=== PATIENT | male | born 1970 | race Caucasian/White ===

== ENCOUNTER 2021-10-25 19:45 | Outpatient (REF) | payer BC, SELFPAY ==
[2021-10-25 21:09] LABS: Bilirubin Negative (Negative); Blood Negative (Negative); Clarity Clear (Clear); Glucose Negative (Negative); Ketones Negative (Negative); Leukocyte Esterase Negative (Negative); Nitrite Negative (Negative); Specific Gravity >= 1.030 (1.005-1.025); Urobilinogen 0.2 EU/dL (Up TO 0.2); pH 5.5 (5-8)
== END 2021-10-25 19:46 | disposition home or self-care (01) ==
LOC: LBN 19:45
PROVIDERS: PCP Naturopath; Visit Provider Nurse Practitioner Family
DX: R31.9 Hematuria, unspecified (principal); N39.0 Urinary tract infection, site not specified
CPT/HCPCS: 81003

== ENCOUNTER 2022-04-20 01:56 | Outpatient (CLI) | payer BC, SELFPAY ==
[2022-04-20 12:40] LABS: Hemoglobin A1C 5.9 % (<5.7)
[2022-04-20 12:50] LABS: ALT 33 U/L (16-63); AST 27 U/L (15-37); Albumin 3.9 g/dL (3.4-5.0); Alkaline Phosphatase 70 U/L (46-116); Anion Gap 8.3 mmol/L (3-11); BUN 20 mg/dL (7-18); Bilirubin, Total 0.4 mg/dL (0.2-1.0); CO2 27.7 mmol/L (21.0-32.0); CREATININE 1.1 mg/dL (0.70-1.30); Calcium 9.4 mg/dL (8.5-10.1); Calculated LDL 108 mg/dL (<100); Chloride 104 mmol/L (98-107); Cholesterol 175 mg/dL (<200); Estimated GFR 82.29 (mL/min/1.73m2); Glucose 88 mg/dL (74-106); HDL Cholesterol 53 mg/dL (40-60); Potassium 3.9 mmol/L (3.5-5.1); Sodium 140 mmol/L (136-145); TSH 0.18 uIU/mL (0.36-3.74); Total Protein 7.6 g/dL (6.4-8.2); Triglyceride 70 mg/dL (<150)
[2022-04-20 13:07] LABS: FREE T4 1.28 ng/dL (0.76-1.46)
== END 2022-04-20 01:57 | disposition home or self-care (01) ==
LOC: LOS 01:56
PROVIDERS: PCP Nurse Practitioner Family; Visit Provider Nurse Practitioner Family
DX: E03.9 Hypothyroidism, unspecified (principal); G47.33 Obstructive sleep apnea (adult) (pediatric)
CPT/HCPCS: 36415; 80053; 80061; 83036; 83655; 84439; 84443

== ENCOUNTER 2022-06-26 02:22 | Outpatient (CLI) | payer BC, SELFPAY ==
[2022-06-26 12:40] LABS: TSH (W/Ref FT4) 2.71 uIU/mL (0.36-3.74)
== END 2022-06-26 02:23 | disposition home or self-care (01) ==
LOC: LOS 02:22
PROVIDERS: PCP Nurse Practitioner Family; Visit Provider Nurse Practitioner Family
DX: E03.9 Hypothyroidism, unspecified (principal)
CPT/HCPCS: 36415; 84443

== ENCOUNTER 2022-08-15 01:41 | Outpatient (CLI) | payer BC, SELFPAY ==
--- NOTE | 2022-08-15 06:45 | DI.RAD_ITS ---
Exam(s) XR SHOULDER LT COMPLETE 2+V EXAM: XR SHOULDER LT COMPLETE 2+V CLINICAL HISTORY: left shoulder pain,m25.512. TECHNIQUE: 2D digital imaging was performed of the left shoulder. Five images were obtained. AP, G rashey, Y-view and axillary views were obtained. COMPARISON: No exams were available for comparison FINDINGS: BONES: No acute fracture is present. No bony destructive lesion is seen. JOINTS: No dislocation present. Mild degenerative changes are seen at the acromioclavicular joint. S ubchondral cysts are also seen in the distal clavicle. The glenohumeral joint is well maintained. SOFT TISSUE: Normal. IMPRESSION: Mild degenerative changes of the acromioclavicular joint. DATA REPOSITORY: RADIATION DOSE DELIVERED:
== END 2022-08-15 02:01 ==
LOC: DI 01:41
PROVIDERS: PCP Nurse Practitioner Family; Visit Provider Nurse Practitioner Family
DX: M19.012 Primary osteoarthritis, left shoulder (principal)
CPT/HCPCS: 73030

== ENCOUNTER → 2022-12-19 00:59 | Outpatient (CLI) | payer OTHER, SELFPAY ==
--- NOTE | 2022-12-19 15:30 | DI.MRI_ITS ---
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 TECHNIQUE: Multiplanar multisequence MRI was performed. COMPARISON: CR XR SHOULDER LT COMPLETE 2+V from 08/15/2022 FINDINGS: BONES: There is no fracture or contusion pattern. There is hyperintense signal on the T2 weighted [place] ges in the distal clavicle and the adjacent acromion. There is a subchondral cyst in the distal clav icle. There is a small amount of fluid within the acromioclavicular joint space. There is mild brittny a in the surrounding soft tissues. JOINTS: Please see the above discussion under bones. The glenohumeral joint is normal. TENDONS: Supraspinatus: There is mild hyperintense signal seen at the musculotendinous junction of the suprasp inatus tendon which may represent a partial tear. Infraspinatus: Unremarkable. Subscapularis: There is tendinosis of the subscapularis tendon. Teres [place]: Unremarkable. Biceps and [place]: Unremarkable. MUSCLES: Unremarkable. GLENOID LABRUM: Unremarkable on this noncontrast examination. SOFT TISSUES: Unremarkable. LIGAMENTS: Unremarkable. OTHER: Subacromial and subdeltoid bursae are unremarkable. IMPRESSION: 1. Hyperintense signal seen at the acromioclavicular joint and within the joint space. Please see th e above discussion for complete details. The findings may represent infection/osteomyelitis/septic a rthritis. Degenerative changes of the acromioclavicular joint should also be considered. 2. Small partial tear of the supraspinatus tendon. 3. Subscapularis tendinosis. DATA REPOSITORY:
== END ==
PROVIDERS: PCP Nurse Practitioner Family; Visit Provider Student in an Organized Health Care Education/Training Program
DX: M89.512 Osteolysis, left shoulder (principal); S46.011A Strain of muscle(s) and tendon(s) of the rotator cuff of right shoulder, initial encounter; X58.XXXA Exposure to other specified factors, initial encounter
CPT/HCPCS: 73221

== ENCOUNTER 2023-06-14 07:57 | Day surgery (SDC) | payer OTHER, SELFPAY ==
[2023-06-14] VITALS (13 sets, daily range): BP systolic 119–142; BP diastolic 67–85; PULSE 55–91; RESP 15–18; TEMP 36.4–36.7; O2SAT 96–99; BMI 35.9
--- NOTE | 2023-06-14 06:45 | ANES.PREOP_ITS ---
General Info Date of Service Date Performed: 06/14/23 Height: 6 ft 1 in Weight: 123.377 kg Body Mass Index (BMI): 35.9 Surgical Procedure: Operation Date: 06/14/23 10:25 Proposed Procedure Side Surgeon p Shoulder Possible Rotator Cuff Arthroscopic w/Extensive Debridement, Subacromial Decompression, Distal Clavicle Excision Left Braxton Taylor MD Meds Allergies and Home Medications Allergies Allergy/AdvReac Type Severity Reaction Status Date / Time No Known Allergies Allergy Verified 06/11/23 13:36 Home Medication Medication Instructions Recorded bupropion HCl 150 mg 24 hr tablet, 150 mg PO DAILY #90 tabs 09/15/22 extended release bupropion HCl 300 mg 24 hr tablet, 300 mg PO DAILY #90 tabs 09/15/22 extended release levothyroxine 75 mcg tablet 75 mcg PO DAILY #90 tabs 09/15/22 tadalafil 5 mg tablet 5 - 20 mg (1 - 4 x 5 mg) PO DAILY 12/22/22 PRN sexual activity #60 tabs Current Visit Medications: Current Medications Generic Name Dose Route Start Last Admin Trade Name Freq PRN Reason Stop Dose Admin Ringer's Solution 1,000 mls @ 30 mls/hr 06/14/23 06:00 IV 07/13/23 23:59 INFUSION FLORENCIO Cefazolin Sodium/Dextrose 2 gm in 50 mls @ 100 mls/hr 06/14/23 06:00 Ancef Duplex IVPB 06/14/23 16:00 PREOP FLORENCIO Tranexamic Acid/Sodium Chloride 1,000 mg in 100 mls @ 600 mls/hr 06/14/23 06:00 IVPB 06/14/23 16:00 PREOP FLORENCIO IV Miscellaneous Supplies 1 each 06/14/23 06:00 Iv Access IV 07/13/23 23:59 DIRECTED FLORENCIO Sodium Chloride 0 ml 06/14/23 06:00 Normal Saline Flush 10 Ml Syr IV 07/13/23 23:59 PRN PRN Sodium Chloride 0 ml 06/14/23 06:00 Normal Saline 10 Ml Vial IJ 07/13/23 23:59 DIRECTED PRN Sterile Water 0 ml 06/14/23 06:00 Water,Injection,Sterile 10 Ml Vial IJ 07/13/23 23:59 DIRECTED PRN PFSH Active Problems Active Problems: Problem Status Onset Code 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 Left shoulder pain M25.512 Cerebral palsy, unspecified G80.9 Obstructive sleep apnea G47.33 Hypothyroidism E03.9 Major depressive disorder, recurrent F33.9 Hyperlipidemia E78.5 Prediabetes R73.03 Erectile dysfunction N52.9 Psoriasis L40.9 Obesity E66.9 Surgical History Surgical History S/P colonoscopy S/P excision of lipoma Tobacco Smoking/Tobacco Use Status: Never Passive smoking exposure: No Alcohol Alcohol Intake: current Alcohol intake frequency: a few times a month Substance Use Substance use: Occasionally Substance use type: marijuana Vital Signs and Lab Results Vital Signs Most Recent Vital Signs in EMR: Temp Pulse Resp BP Pulse Ox 36.7 C 60 16 142/80 H 96 06/14/23 08:36 06/14/23 09:13 06/14/23 09:13 06/14/23 09:13 06/14/23 09:13 Lab Results Blood Type / Crossmatch: No Data to Display Complete Blood Count: No Data to Display Complete Metabolic Panel: No Data to Display Liver Function Panel: No Data to Display Coagulation Panel: No Data to Display Cardiac Panel: No Data to Display Arterial Blood Gas: 2 No Data to Display Venous Blood Gas: No Data to Display Pancreas Panel: No Data to Display Thyroid Panel: No Data to Display Infectious Disease: No Data to Display Blood Cultures: No Data to Display Toxicology Panel: No Data to Display Anesthesia Assessment and Plan Anesthesia History Personal History: No History of Anesthesia Complications Family History: No Family History of Anesthesia Complications Exercise Tolerance Exercise Tolerance: Metabolic Equivalents>4 Pertinent Negatives Pertinent Negatives: No Symptoms of GERD, No Major Cardiovascular Symptoms or Complaints and No Major Pulmonary Symptoms or Complaints Cardiac & Pulmonary Exam Cardiac Exam: Normal S1/S2 Heart Sounds Pulmonary Exam: Clear Bilateral Breath Sounds Implantable Cardiac Device Does patient have a Pacemaker or an ICD?: No Airway Exam Known Difficult Airway: No Mallampati Class: 1 Mouth Opening: Normal (> 3cm) Thyromental Distance: Greater than 3 cm Neck Range of Motion: Full ROM Neck Circumference: Normal Teeth Condition: Normal Dentition ASA Classification ASA Score: ASA 2 Emergency Case?: No NPO Status NPO Status: NPO Clears >2 hours, Solids >8 hours Anesthesia Plan Resuscitation Status: Full Code Anesthesia Technique: General Anesthesia Airway Planned: Endotracheal Tube Pain Management: Surgeon and patient request nerve block Monitors Used: Standard Monitors Preoperative Comments:: 52 yo male for shoulder scope, distal clavicle excision. sig PMHx: JED, hypothyroid (on replacement), preDM, cerebral palsy, depression (bupropion). never smoker, occ EtOH/cannabis.
--- NOTE | 2023-06-14 07:16 | W.PM.DSUDISC ---
Date of service: 06/14/23 Time of Service: 13:00 Discharge Plan Disposition Patient Disposition: Home Condition: Stable Discharge Details Attending Provider: Braxton Taylor Primary Care Provider: Terri Huggins Home Meds and New Rx's Prescriptions: New naproxen 250 mg tablet 250 - 500 mg PO BID PRNQty: 40 0RF Rx Instructions: take with a meal oxycodone 5 mg tablet 5 - 10 mg PO Q4H MDD 30 mg PRN (Reason: moderate to severe pain) Qty: 12 0RF Continued bupropion HCl 150 mg tablet extended release 24 hr 150 mg PO DAILY Qty: 90 3RF Rx Instructions: 1 tab daily in addition to the 300mg tablet bupropion HCl 300 mg tablet extended release 24 hr 300 mg PO DAILY Qty: 90 3RF Rx Instructions: Take 1 tablet daily in addition to the 150mg tablet levothyroxine 75 mcg tablet 75 mcg PO DAILY Qty: 90 3RF tadalafil 5 mg tablet 5 - 20 mg PO DAILY PRN (Reason: sexual activity) Qty: 60 2RF Discharge Instructions Additional Instructions: Surgery: Left shoulder arthroscopy with extensive debridement, distal clavicle excision, and subacromial decompression. Activity: You should gradually increase range of motion motion and use of your shoulder. You may use your shoulder for all regular activities while protecting acromioclavicular joint. Recommend avoiding heavy lifting, reaching overhead, or lifting away from body for approximately 6-8 weeks. You may use the sling whenever you are out of the house for a few weeks. At home it is best to remove the sling and rest the arm on a pillow at your side or support the operative side with your other hand. A physical therapy prescription will be sent electronically to start in about 3 weeks. Prescriptions: Naproxen 250 mg take 1-2 every 12 hours with a meal as needed for moderate pain Oxycodone 5 mg take 1-2 every 4-6 hours as needed for severe pain You may use [id number] Tylenol (acetaminophen) as needed for mild pain. These pain medications may be taken all at once or in different combinations as needed. Also, recommend Colace (docusate) as a stool softener as surgery and pain medicine cause constipation. You may try [id number] diphenhydramine (Benadryl) 25-50 mg nightly as a sleep aid Dressings: Remove shoulder bandage after 3 days. Leave the sticky Steri-Strips in place until they fall off or remove them after you shower. Cover the incisions with Band-Aids or leave them open to air. You may shower after 5 days. Follow-up: 10-[address] Taylor You may take off the leg compression stockings this evening at home. You may also leave them on a few days longer if you have a history of leg swelling or edema. Let us know right away if you develop any redness, drainage, fevers, chest pain, or trouble breathing. Do not drink alcohol or drive for at least 24 hours after anesthesia. Please call the office during business hours with any questions or concerns. Stand Alone Forms: Anesthesia Discharge Inst.Josi.Nerve Block Instructions, Felicita Oakley ([facility]) Referrals: Braxton Taylor MD [ [facility] STAFF PHYSICIAN] - 06/27/23 9:00 am (Follow Up Post Left Shoulder Surgery with Dr. 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
[2023-06-14] MEDS: Lactated Ringers 1,000 ML 30 ML IV (09:00)
--- NOTE | 2023-06-14 10:10 | W.ANESNERVE ---
Nerve Block Single Injection Procedure Date and Time Date Performed: 06/14/23 Procedure Start: 10:10 Location Where Procedure Performed Procedure Location: Day Surgery Unit Reason Performed: Postoperative Analgesia Requesting Provider: Braxton Taylor Timeout Performed Timeout Performed: Yes Monitoring Used ECG, Blood Pressure and SpO2 Sterility Sterility: Hand Hygiene, Surgical Cap, Surgical Mask, Sterile Gloves and Chlorhexidine Sedation Given During Procedure Sedation Given (Indicate Dose Given): Versed IV Dose:: 2 mg Patient Mental Status Patient Mental Status: Sedate with meaningful communication Nerve Block 1st Nerve Block: Laterality: Left Block Type: Interscalene Ultrasound Image Saved?: Yes Needle / Catheter Used: 100mm SonoPlex II Local Anesthetic Bolus (Indicate Dose Given): Bupivacaine 0.5% Dose:: 10 mL and Exparel Dose:: 7 mL Additives (Indicate Dose Given): None Ultrasound: Sterile probe cover and gel used Nerve Stimulator: Supplement to Ultrasound use and No twitch or parasthesia noted < 0.5 mA Paresthesia: None Procedure Tolerated: No Complications Procedure Outcome: Successful Performed By: Adrian Chi 2nd Nerve Block: Laterality: Left Block Type: Superficial Cervical Plexus Ultrasound Image Saved?: Yes Needle / Catheter Used: 100mm SonoPlex II Local Anesthetic Bolus (Indicate Dose Given): Exparel Dose:: 3 mL Additives (Indicate Dose Given): None Ultrasound: Sterile probe cover and gel used Nerve Stimulator: Not Used, Supplement to Ultrasound use and No twitch or parasthesia noted < 0.5 mA Paresthesia: None Procedure Tolerated: No Complications Procedure Outcome: Successful Performed By: Adrian Chi
--- NOTE | 2023-06-14 10:24 | ROE_ITS ---
Date of service: 06/14/23 Time of Service: 11:00 Operative Note Operative Note DATE OF PROCEDURE: 06/14/23 PRE-OP DIAGNOSIS: Left: 1. Distal clavicle osteolysis 2. Mild biceps tendinopathy 3. Small partial supraspinatus rotator cuff tear POST-OP DIAGNOSIS: same PROCEDURE: Left: 1. Arthroscopic distal clavicle excision, CPT# 02191. This involved arthroscopically exposing the underside of the acromioclavicular joint, smoothing out bone spurs, and removing a few millimeters of the distal clavicle so there was no abnormal bone left engaging the acromion. 2. Extensive debridement, CPT# 26757. This involved using arthroscopic hand instruments, power instruments, and radiofrequency instruments to debride partial subscapularis tearing, anterior and posterior labral tearing, SLAP tearing, partial articular supraspinatus tearing, and some rotator interval synovitis working in the glenohumeral joint anteriorly, superiorly, and posteriorly. 3. Subacromial decompression with partial acromioplasty, CPT# 43413. This involved using arthroscopic power instruments and a radiofrequency wand to complete a bursectomy and smooth the undersurface of the acromion. The electrician assistant was medically required in order to help assist in techniques above, which require positioning the arm, holding the arthroscope, and manipulating multiple instruments and sutures at the same time. This cannot be done without the help of an experienced electrician assistant. SURGEON: Braxton Taylor TIN POT OPERATOR: Shabana Ray ANESTHESIA TYPE: Local By Surgeon, General LMA/ETT and Primary Nerve Block Refer to Anesthesia Record ESTIMATED BLOOD LOSS: 5 PATHOLOGY: none sent COMPLICATIONS: None Patient was transported to: PACU Patient's condition: stable Implants: None Indications: The patient was diagnosed with the above conditions and appropriately indicated for surgical intervention. Please see complete medical record for details. Findings: Exam under anesthesia: Full range of motion, no instability Glenohumeral joint: Mild anterior and posterior labral tear fraying, minimal SLAP tear fraying with otherwise intact biceps tendon and biceps tendon anchor, mild small upper lateral margin subscapularis partial tearing, minimal central to posterior humeral head chondromalacia, mild partial articular supraspinatus tendon tearing without any significant footprint involvement. Subacromial space: Moderate bursitis, inflamed cystic distal clavicle. Intact bursal rotator cuff. Procedure Description: In the operating room, general anesthesia was induced. Bilateral shoulders were examined. The patient was positioned in the beachchair position. All bony prominences were well-padded. Preoperative antibiotics were administered. The shoulder was prepped and draped in the usual sterile fashion. The correct patient, procedure, and side of the procedure were all verified prior to incision. Starting through the posterior portal a standard complete diagnostic arthroscopy was performed of the glenohumeral joint including inspection of the long head of the biceps, anterior and superior labrum, subscapularis tendon, supraspinatus and infraspinatus tendons, and axillary recess. The glenoid and humeral head cartilage as well as the posterior labrum were inspected from an anterior viewing portal. Significant findings and interventions noted above as part of the glenohumeral joint debridement. Starting through the posterior portal, the arthroscope was directed into the subacromial space. A lateral 50 yard line lateral portal was created. A combination of power instruments and a radiofrequency ablator were used to debride bursitis anteriorly, posteriorly, and laterally as well as expose and smooth bone spurring on the undersurface of the acromion. The coracoacromial ligament was partially released. The bursectomy was completed viewing laterally and working from posteriorly and the rotator cuff was thoroughly inspected with findings noted above. The anterior portal was redirected towards the undersurface of the AC joint. A shaver and electrocautery device were used to clear soft tissue from the undersurface of the AC joint. The distalmost few millimeters mm of the distal clavicle was then removed and smoothed. Care was taken to alternate between working through the anterior portal and viewing through the anterior portal to ensure that proper amount of bone was removed and there was no abnormal bone left behind especially superiorly. Small amount of medial acromion was debrided as well. All bone ends were then ablated with the radiofrequency wand for he mostasis and prevent regrowth. The shoulder was drained of arthroscopic fluid. All portal sites were copiously irrigated. These incisions were closed using 3-0 Monocryl in a buried fashion and then covered with Mastisol, Steri-Strips, Xeroform, dry gauze, and ABDs. The dressings were covered and secured with Medipore tape. The operative extremity was placed into a sling for immobilization. The patient awoke from anesthesia without complication and was transferred to the recovery room in a stable condition.
[2023-06-14] MEDS: ceFAZolin 2 GM/50 ML BAG IVPB (10:53)
[2023-06-14] MEDS: EPINEPHrine 10 MG/10 ML ML (11:00)
[2023-06-14] MEDS: TRANEXAMIC ACID/SOD. CHL. 1,000 MG/100 ML BAG 600 MG IVPB (11:00)
--- NOTE | 2023-06-14 13:06 | W.ANESPOSTOP ---
Postoperative Evaluation Date, Time and Location Date Performed: 06/14/23 Time Performed: 13:06 Patient Location: PACU Vital Signs Most Recent Imported Vital Signs: Most Recent Vital Signs Temp Pulse Resp BP Pulse Ox 36.6 C 71 15 129/74 96 06/14/23 13:03 06/14/23 13:03 06/14/23 13:03 06/14/23 13:03 06/14/23 13:03 Pain Score Most Recent Pain Score: Most Recent Pain Score Pain Level 0 06/14/23 13:03 Assessment Mental Status: Awake (Alert & Oriented to Patient Baseline) Airway and Respiratory Function: Patent airway with normal (patient baseline) respiratory exam Cardiovascular Function: Hemodynamically Stable Hydration Status: Adequately Hydrated Nausea & Vomiting: No Nausea or Vomiting Pain: Pt. Denies Any Pain Peripheral Nerve Block: Regional nerve block not resolved at time of post operative discharge
== END 2023-06-14 15:09 | disposition home or self-care (01) ==
LOC: SUR 07:57
PROVIDERS: PCP Nurse Practitioner Family; Visit Provider Student in an Organized Health Care Education/Training Program
PROC: (CPT 29827; principal; 2023-06-14 09:45)
DX: M89.512 Osteolysis, left shoulder (principal); G80.9 Cerebral palsy, unspecified; G47.33 Obstructive sleep apnea (adult) (pediatric); E03.9 Hypothyroidism, unspecified; R73.03 Prediabetes
CPT/HCPCS: 29823; 29824; 29826; 76942; C9290; J0665; J0690; J1100; J1885; J2250; J2371; J2405; J2704

== ENCOUNTER 2023-10-17 03:41 | Outpatient (CLI) | payer OTHER, SELFPAY ==
[2023-10-17 13:51] LABS: Anion Gap 6.9 mmol/L (3-11); BUN 18 mg/dL (7-18); CO2 26.1 mmol/L (21.0-32.0); Calcium 9.5 mg/dL (8.5-10.1); Chloride 106 mmol/L (98-107); Estimated GFR 91.69 (mL/min/1.73m2); Glucose 83 mg/dL (74-106); Potassium 4.3 mmol/L (3.5-5.1); Sodium 139 mmol/L (136-145); TSH (W/Ref FT4) 3.01 uIU/mL (0.36-3.74)
[2023-10-17 19:19] LABS: PSA, Screening 1.3 ng/mL (<=3.5)
[2023-10-18 08:34] LABS: HIV-1/2 Ag & Ab Screen Negative (Negative)
[2023-10-18 09:07] LABS: Hepatitis C Ab w Rflx HCV PCR Negative (Negative)
[2023-10-18 09:33] LABS: HBs Antibody, Quant 3.9 mIU/mL (See Note); Hep B Surface Ab Negative (See Note); Hepatitis B Core Antibody Negative (Negative); Hepatitis B Surface Antigen Negative (Negative)
[2023-10-18 12:19] LABS: Hemoglobin A1C 5.6 % (<5.7)
[2023-10-18 13:06] LABS: Lab Add On Test DONE
[2023-10-18 13:18] LABS: Calculated LDL 103 mg/dL (<100); Cholesterol 168 mg/dL (<200); HDL Cholesterol 57 mg/dL (40-60); Triglyceride 43 mg/dL (<150)
[2023-10-18 15:31] LABS: Lab Add On Test DONE
[2023-10-18 16:27] LABS: Vitamin D 25 Total 26.8 ng/mL (30-100)
== END 2023-10-17 03:42 | disposition home or self-care (01) ==
LOC: LOS 03:41
PROVIDERS: PCP Nurse Practitioner Family; Visit Provider Nurse Practitioner Family
DX: E03.9 Hypothyroidism, unspecified (principal); R73.03 Prediabetes; E78.5 Hyperlipidemia, unspecified; Z11.59 Encounter for screening for other viral diseases; Z00.00 Encounter for general adult medical examination without abnormal findings; Z11.4 Encounter for screening for human immunodeficiency virus [HIV]; Z12.5 Encounter for screening for malignant neoplasm of prostate; G47.33 Obstructive sleep apnea (adult) (pediatric)
CPT/HCPCS: 36415; 80048; 80061; 82306; 84153; 86704; 86706; 86803; 87340; 87389; 83036; 84443

== ENCOUNTER 2025-01-08 00:07 | Outpatient (CLI) | payer OTHER, SELFPAY ==
[2025-01-08 14:42] LABS: Abs Immature Grans 0.03 10^3/uL (0.0-0.06); HCT 45.9 % (40.0-50.0); HGB 15.0 g/dL (13.5-17.5); Immature Grans % 0.6 %; MCH 29.0 pg (27.0-33.0); MCHC 32.7 % (32.0-36.0); MCV 89 fL (80-95); MPV 9.7 fL (8.0-11.0); Platelet Count 280 10^3/uL (130-400); RBC 5.17 10^6/uL (4.36-5.78); RDW 12.6 % (11.8-14.1); RDW-SD 41.1 fL; WBC 5.25 10^3/uL (4.4-10.8)
[2025-01-08 15:17] LABS: Anion Gap 5.1 mmol/L (3-11); BUN 18 mg/dL (7-18); CO2 30.9 mmol/L (21.0-32.0); Calcium 9.2 mg/dL (8.5-10.1); Chloride 105 mmol/L (98-107); Estimated GFR 90.56 (mL/min/1.73m2); Glucose 82 mg/dL (74-106); Potassium 4.5 mmol/L (3.5-5.1); Sodium 141 mmol/L (136-145); TSH (W/Ref FT4) 2.38 uIU/mL (0.36-3.74); Vitamin D 25 Total 32 ng/mL (30-100)
[2025-01-09 09:37] LABS: PSA, Screening 1.7 ng/mL (<=3.5)
== END 2025-01-08 00:08 | disposition home or self-care (01) ==
LOC: LOS 00:08
PROVIDERS: PCP Nurse Practitioner Family; Visit Provider Nurse Practitioner Family
DX: E03.9 Hypothyroidism, unspecified (principal); Z12.5 Encounter for screening for malignant neoplasm of prostate; E55.9 Vitamin D deficiency, unspecified
CPT/HCPCS: 36415; 80048; 82306; 84153; 84443; 85025